=== PATIENT | male | born 1970 | race Asian ===

== ENCOUNTER 2020-10-22 17:15 | Emergency (ER) | payer OTHER ==
[~2020-10-22] VITALS: Ht 162.6 cm; Wt 72.7 kg
[2020-10-22] MEDS ORDERED: CloNIDine HCL 0.1 MG TABLET PO ONE (18:15)
[2020-10-22 18:37] LABS: BASOPHILS % (AUTO) 0.5 % (0.0-2.0); EOSINOPHILS % (AUTO) 0.4 % (1.0-6.0); HEMATOCRIT 50.3 % (41-53); HEMOGLOBIN 16.9 g/dL (13.5-17.5); LYMPHOCYTES # (AUTO) 1.7 K/uL (1.0-4.8); LYMPHOCYTES % (AUTO) 19.2 % (22.0-44.0); MEAN CORPUSCULAR HEMOGLOBIN 28.4 pg (26.0-34.0); MEAN CORPUSCULAR HGB CONC 33.6 G/dL (31.0-37.0); MEAN CORPUSCULAR VOLUME 84 fL (80-100); MONOCYTES # (AUTO) 0.4 K/uL (0.1-1.0); MONOCYTES % (AUTO) 5.2 % (2.0-9.0); NEUTROPHILS # (AUTO) 6.5 K/uL (1.8-7.7); NEUTROPHILS % (AUTO) 74.7 % (40.0-70.0); PLATELET COUNT (AUTO) 281 K/uL (150-450); RED BLOOD CELL COUNT(AUTO) 5.96 MIL/uL (4.50-5.90); RED CELL DISTRIBUTION WIDTH 13.7 % (11.5-14.5)
[2020-10-22 18:52] LABS: ANION GAP 12 mmol/L (8-16); CALCIUM, TOTAL 10.1 mg/dL (8.8-10.5); CARBON DIOXIDE 24 mmol/L (22-29); CHLORIDE 100 mmol/L (98-107); CREATININE 1.01 mg/dL (0.60-1.30); GLOMERULAR FILTR. RATE CALC > 60 mL/min (>60); GLUCOSE,RANDOM 171 mg/dL (70-110); SODIUM SERUM 136 mmol/L (136-145); UREA NITROGEN, BLOOD 17 mg/dL (7-18)
[2020-10-22 18:59] LABS: ALANINE AMINOTRANSFERASE 78 U/L (12-78); ALBUMIN 4.9 g/dL (3.4-5.0); ALKALINE PHOSPHATASE 83 U/L (46-116); ASPARTATE AMINOTRANSFERASE 25 U/L (15-37); BILIRUBIN,TOTAL 0.7 mg/dL (0.1-1.0); TOTAL PROTEIN, SERUM 9.6 g/dL (6.4-8.2)
[2020-10-22] MEDS ORDERED: HydrALAZINE HCL 10 MG TABLET PO ONE (20:00)
[2020-10-22 20:56] LABS: COVID AG,FIA SOURCE NASOPHARYNGEAL
[2020-10-22 21:38] VITALS: BP 168/114
== END 2020-10-22 21:53 | disposition home or self-care (01) ==
LOC: EMS 17:15
DX: R06.02 Shortness of breath (principal); R42 Dizziness and giddiness; Z20.822 Contact with and (suspected) exposure to COVID-19
CPT/HCPCS: 70450; 87426; 93005; 36415-L1; 36415-TC; 71045-TC